=== PATIENT | female | born 1940 | race Caucasian/White ===

== ENCOUNTER 2018-06-22 12:15 | Emergency (ER) | payer OTHER ==
[~2018-06-22] VITALS: Ht 160 cm; Wt 69.8 kg
[2018-06-22 12:15] VITALS: BP 191/90
[~2018-06-22 12:15] MED LIST: ADULT LOW DOSE81 MG PO; CALCIUM 500 +1 EAC5 PO; FLOMAX PO; IBUPROFEN 200200 M1; MACROBID 100 M100 M1 PO; MULTIVITAMINS PO; NORCO 5-325 TA1 EACH PO; ONDANSETRON HCL4 M2 PO; PERCOCET 5-3251 EACH PO; PHENERGAN 25 MG25 M1 PO; ZOFRAN ODT4 MG PO
[2018-06-22] MEDS ORDERED: NORCO 5-325 TA1 EACH PO (13:42)
[2018-06-22] MEDS ORDERED: SENNA-DOCUSATE1 EACH PO (13:42)
== END 2018-06-22 14:02 | disposition home or self-care (01) ==
LOC: ER 12:15
DX: S52.501A Unspecified fracture of the lower end of right radius, initial encounter for closed fracture (principal); S00.211A Abrasion of right eyelid and periocular area, initial encounter; I10 Essential (primary) hypertension; M81.0 Age-related osteoporosis without current pathological fracture; W01.0XXA Fall on same level from slipping, tripping and stumbling without subsequent striking against object, initial encounter; Y93.89 Activity, other specified; Y92.89 Other specified places as the place of occurrence of the external cause; Y99.8 Other external cause status